=== PATIENT | female | born 1985 | race Caucasian/White ===

== ENCOUNTER 2020-10-15 07:55 | Day surgery (SDC) | payer OTHER, SELFPAY ==
[2020-09-11 13:22] VITALS: BMI 31.5
[2020-10-15] VITALS (9 sets, daily range): BP systolic 102–137; BP diastolic 55–72; PULSE 72–103; RESP 10–20; TEMP 36.8–37.1; O2SAT 97–100; BMI 31.5
--- NOTE | 2020-10-15 | PATH_ITS ---
[facility] Accession Number: [id number] . 01 Material submitted: . fallopian tube - BILATERAL FALLOPIAN TUBES AND LEFT OVARIAN MASS . 01 Diagnosis: Bilateral Fallopian Tubes and Left Ovarian Mass, Bilateral Salpingectomy and Excision: Bilateral fimbrated fallopian tubes with complete cross-section of lumen identified, and with benign paratubal cyst and foci of endometriosis. Benign fibroma. No malignancy. V 10/17/2020 1443 Local . 01 Comment: Selected slides (A5) from this case have also been reviewed by Dr. Marti Curry, who concurs with the diagnosis of benign fibroma. . 01 Electronically signed: . Rose Marie Rosen MD, Pathologist NPI- [id number] . 01 Gross description: . The specimen is received in formalin, labeled bilateral fallopian tubes and left ovarian mass and consists of two fallopian tubes measuring 6.0 cm in length by 1.0 cm in diameter and 8.0 cm in length by 1.0 cm in diameter. The serosa is woodard-pink and smooth with focal fibrinous adhesions and multiple paratubal cysts ranging from 0.1-1.0 cm. Sectioning reveals a woodard mucosa and a stellate lumen measuring 0.5 cm in diameter. Also received are two firm woodard nodules measuring 0.8 x 0.5 x 0.4 cm and 1.5 x 1.4 x 0.5 cm. The nodules are inked blue. Residential [employer] sections are submitted. . A1-A2: [place] fallopian tube, margin (blue/en face), central cross-sections and bisected fimbria. A3-A4: Longer fallopian tube, margin (blue/en face), central cross-sections and bisected fimbria. A5: Nodules, bisected and entirely submitted. ([id number]) /MRV 10/16/2020 1147 Local . 01 Pathologist provided ICD-10: N83.209, N80.9, Z30.2, D27.1 . 01 CPT . 930125 Performed at: 01 [facility] [address] [place] [address] [id number] MD Sven Tomlinson MD Phone: [phone]
[2020-10-15] MEDS: LACTATED RINGERS 1,000 ML 100 ML IV (08:55)
--- NOTE | 2020-10-15 09:24 | P.HP_ITS ---
History of Present Illness History of Present Illness Date Patient Seen: 10/15/20 Time Patient Seen: 09:25 Chief complaint: PELVIC Narrative: Patient is a 34-year-old 1 para 1 with a left ovarian cyst/endometrioma and who desires permanent sterilization. She presents for a laparoscopic removal of the left ovarian cyst/endometrioma and bilateral salpingectomy. Patient History Medical History (Updated 09/16/20 @ 20:14 by Serena Mays) Anemia (~2018) Fractures (~2012) Heavy menstrual period Irregular menstrual cycle Irritable bowel syndrome Migraines (~2008) Painful menstrual periods PCOS (polycystic ovarian syndrome) Wears glasses Surgical History (Updated 09/16/20 @ 20:14 by Serena Mays) Anesthesia History of dental surgery (~2002) History of surgery (~2012) Hx laparoscopic cholecystectomy (~2015) [place] teeth extracted Family & Social History Family History (Updated 09/16/20 @ 20:20 by Serena Mays) Father Colitis Anxiety Hypertension Mental health problem Mother Crohn's disease Fibromyalgia Rheumatoid arthritis Diabetes mellitus Sister Mental health problem Grandfather Cancer Grandmother Parkinson's disease History of heart disease Grandfather Cancer Parkinson's disease Grandmother History of heart disease Social History: household members spouse Tobacco & Substance use: Smoking Status Never smoker alcohol intake current alcohol intake frequency holiday/special occasion Substance Use Type does not use Meds Home Medications and Allergies Home Medications Medication Instructions Recorded Confirmed Type escitalopram oxalate 10 mg tablet 10 mg PO DAILY 08/05/20 10/15/20 History Allergies Allergy/AdvReac Type Severity Reaction Status Date / Time Penicillins Allergy Intermediate Verified 10/15/20 08:23 Exam Vital Signs (past 8 hours): - 10/15/20 08:56 Temperature 98.2 F Pulse Rate 72 Respiratory Rate 16 Blood Pressure 102/66 Pulse Oximetry 99 Oxygen Delivery Method Room Air Narrative Exam Narrative: HEENT: No thyromegaly, no anterior cervical or supraclavicular lymphadenopathy. Lungs:Clear to auscultation bilaterally, no wheezes. Cardiovascular: Regular rate and rhythm, no murmurs, rubs, or gallops. Abdomen: Well-healed laparoscopy scars. No hepatosplenomegaly. No masses palpable. External genitalia: Normal Vagina: Normal Cervix: Normal Bimanual exam: 7 Week size anteverted uterus. Mobile. Extremities: No edema Assessment & Plan Assessment & Plan narrative: Assessment: 34-year-old 1 para 1 with a left ovarian cyst/endometrioma and who desires permanent sterilization Plan: Laparoscopic removal of cyst/endometrioma and bilateral salpingectomy. The risks, benefits, and alternatives to the procedure were explained to the patient. The risks including bleeding, infection, injury to the bowel, bladder, or ureters. She understands these risks and agrees to proceed. A full par Q was held and consent form was signed. COVID-19 COVID-19 status: Negative Result date/Date tested (Pos, Neg/Pending): 10/15/20 Time Spent With Patient Time with patient: 15-24 minutes
--- NOTE | 2020-10-15 09:28 | PM.PREOP ---
Pre-operative Note COVID-19 COVID-19 status: Negative Result date/Date tested (Pos, Neg/Pending): 10/15/20 Interval Note History & Physical reviewed/Exam performed by Physician: Yes Changes to H&P: No H&P completed within 30 days and has changed as indicated here:: 10/15/20
--- NOTE | 2020-10-15 10:06 | SUR.OPER ---
Lithotomy on padded OR bed, head on pillow, arms secured on padded arm boards at <90 degrees abduction. Legs secured in padded yellow fins stirrups.
[2020-10-15] MEDS: BUPIVACAINE 0.5% (PF) VIAL 30 ML INJ (10:21)
[2020-10-15] MEDS: EPINEPHrine 1 MG/ML 0.15 MG INJ (10:22)
--- NOTE | 2020-10-15 10:55 | PM.GYNOP.1 ---
Operative Date/Time/Diagnoses Date of procedure: 10/15/20 Time of procedure: 10:55 Pre-op diagnosis: Desires permanent sterilization Left ovarian cyst Post-op diagnosis: same Procedure & Clinicians Procedure: Procedures Operation Date: 10/15/20 09:45 Actual Procedure Side Surgeon p Diagnostic Laparoscopy, Bilateral Salpingectomy, removal of left ovarian mass Leatha Frias MD Indications: Left ovarian cyst Desires permanent sterilization Surgeon: Letaha Frias Anesthesia Type: General and Local Operative Notes Findings: After informed consent was obtained, the patient was taken to the operating room where she was placed in the dorsal supine position. After adequate general endotracheal anesthesia was achieved, she was placed in the dorsal lithotomy position, and prepped and draped in the usual sterile fashion. A time-out was performed. A bivalve speculum was placed into the vagina and the anterior lip of the cervix grasped with a single-tooth tenaculum. The cervical os was sequentially dilated until the Zumi uterine manipulator could pass easily into the endometrial cavity. Single-tooth tenaculum was removed from the anterior lip of the cervix. The bivalve speculum was removed from the vagina. Attention was then turned to the abdomen where 6 cc of 0.25% Marcaine with epinephrine were injected into the umbilical fold. A 5 mm incision was made. The Veress needle was placed into the peritoneal cavity, and its placement confirmed by aspiration and drop test. The abdominal cavity was insufflated with 3.4 L of CO2. The Veress needle was removed, and a 5 mm trocar was placed without difficulty. Two other incisions were made 4 cm lateral to the midline after 6 cc of 0.25% Marcaine with epinephrine were injected and 5 mm incisions were made. Two 5 mm trocars were placed under direct visualization. The right tube was grasped with an atraumatic grasper. Using the PlasmaKinetic with settings of 40 w, the mesosalpinx was cauterized and cut all the way down to the cornua of the uterus. The tube was amputated at the cornua. The tube was placed into the anterior cul-de-sac. This was repeated on the patient's left tube. There was a 1.5 cm mass coming from the superior margin of the left ovary. This was grasped with the single-tooth tenaculum. The base of the mass was cauterized with PlasmaKinetic and removed from the ovary. The left lateral incision was extended slightly and the mass was removed through the left lateral incision. The pelvis was copiously irrigated with warm normal saline there was no bleeding noted. The instruments were removed from the abdomen. The CO2 was allowed to escape. All of the incisions were closed with 4 0 Monocryl in a subcuticular fashion. Steri-Strips and Allevyn dressings were placed. The uterine manipulator was removed from the uterus. Sponge, lap, and instrument counts were correct x2. The patient tolerated the procedure well, and was taken to PACU in stable condition. Closure Type: primary Specimen(s): left tube, right tube and other (Left uterine mass) Estimated blood loss (mL): 5 Blood products transfused: none Procedure in detail: See findings above Findings: 6 week size anteverted uterus, normal tubes, 1.5 x 1 cm left ovarian mass. Normal liver and appendix. Complications: none Post-operative Condition: stable Disposition: PACU Plan for aftercare: Home after recovery
[2020-10-15] MEDS: ONDANSETRON 4 MG/2 ML INJ IV (11:13)
[2020-10-15] MEDS: OXYCODONE/ACETAMINOPHEN 5/325 TABLET 1 TAB PO (11:13)
== END 2020-10-15 11:41 | disposition home or self-care (01) ==
PROVIDERS: PCP Family Medicine; Referring Provider Obstetrics & Gynecology; Visit Provider Obstetrics & Gynecology
PROC: (CPT 58661; principal; 2020-10-15 09:45)
DX: Z30.2 Encounter for sterilization (principal); Z20.822 Contact with and (suspected) exposure to COVID-19; N83.8 Other noninflammatory disorders of ovary, fallopian tube and broad ligament; N80.2 Endometriosis of fallopian tube; D27.1 Benign neoplasm of left ovary
CPT/HCPCS: 58661; 58662; 81025; 87635; J0171; J1100; J1885; J2250; J2405; J2704; J3010